=== PATIENT | male | born 2005 | race Caucasian/White ===

== ENCOUNTER 2024-05-28 03:42 | Emergency (ER) | payer BC ==
[2024-05-28] MEDS: Ondansetron 4 MG/2 ML SDV IVPUSH ONE (04:02)
[2024-05-28 04:33] LABS: BASOPHILS PERCENT AUTO 0.5 % (0.3-3.8); EOSINOPHILS ABSOLUTE AUTO 0.7 x10-3/uL (0.0-0.6); EOSINOPHILS PERCENT AUTO 8.7 % (0.1-6.8); HEMATOCRIT 50.6 % (38.3-50.1); HEMOGLOBIN 16.6 g/dL (12.9-17.7); LYMPHOCYTES ABSOLUTE AUTO 2.3 x10-3/uL (0.5-4.5); LYMPHOCYTES PERCENT AUTO 31.2 % (15.8-45.3); MEAN CORPUSCULAR HEMOGLOBIN 30.5 pg (27.0-33.3); MEAN CORPUSCULAR HGB CONC 32.8 g/dL (28.7-35.3); MEAN CORPUSCULAR VOLUME 92.8 fL (80.8-98.7); MEAN PLATELET VOLUME 7.9 fL (6.7-11.0); MONOCYTES ABSOLUTE AUTO 0.2 x10-3/uL (0.0-1.2); MONOCYTES PERCENT AUTO 3.3 % (5.5-15.2); NEUTROPHILS ABSOLUTE AUTO 4.2 x10-3/uL (1.7-6.9); NEUTROPHILS PERCENT AUTO 56.3 % (40.3-71.8); PLATELET COUNT,PLT 297 x10(3)uL (117-477); RED BLOOD CELL COUNT 5.45 x10(6)uL (3.90-5.90); RED CELL DISTRIBUTION WIDTH 14.4 % (12.4-15.0); WHITE BLOOD CELL COUNT,WBC 7.5 x10-3/uL (3.2-10.1)
[2024-05-28 04:39] LABS: A/G RATIO 1.2; ALANINE AMINOTRANSFERASE,ALT 22 U/L (12-36); ALBUMIN 4.2 g/dL (3.5-5.2); ALKALINE PHOSPHATASE 135 IU/L (56-112); ASPARTATE AMNIOTRANSFERASE,AST 17 IU/L (5-25); BILIRUBIN TOTAL 0.2 mg/dL (0.1-1.3); BLOOD UREA NITROGEN,BUN 8 mg/dL (7-18); BUN/CREATININE RATIO 7.3 (9-20); CALCIUM 8.7 mg/dL (8.6-10.2); CHLORIDE,CL 108 mmol/L (100-110); CREATININE 1.1 mg/dL (0.70-1.30); ESTIMATED GFR 98 mL/min (>60); GLUCOSE RANDOM 112 mg/dL (80-116); POTASSIUM,K 4.1 mmol/L (3.5-5.3); PROTEIN TOTAL,TP 7.6 g/dL (6.0-8.0); SODIUM,NA 145 mmol/L (135-145)
[2024-05-28 04:44] LABS: CARBON DIOXIDE,CO2 25 mmol/L (21-32)
== END 2024-05-28 11:20 | disposition home or self-care (01) ==
LOC: FB.ED 03:42
DX: S00.31XA Abrasion of nose, initial encounter (principal); F10.120 Alcohol abuse with intoxication, uncomplicated; W19.XXXA Unspecified fall, initial encounter
CPT/HCPCS: 36415; 80053; 80307; 83735; 85025; 96374; 99284; J2405